=== PATIENT | male | born 1945 | race Caucasian/White ===

== ENCOUNTER 2016-11-26 11:31 | Inpatient (IN) | payer MEDICARE, OTHER ==
[~2016-11-26] VITALS: Ht 170.2 cm; Wt 67.6 kg
--- NOTE | 2016-11-26 11:33 | NUR ---
pt to er er bed 09 accompanied by family. presents w/ a scalp laceration approx 3cm w/ minimal bleeding noted. possible syncope. pt states was coughing and possible lost air and fell. unable to recall exaclty what happen. gowned and placed on monitor. stable vitals. minimal pain. awaiting md mclaughlin. Addendum: 11/26/16 at 1413 by CHANO 3cm hematoma w/ overlying superficial abrasion. no laceration noted.
--- NOTE | 2016-11-26 11:59 | NUR ---
dr mahan at bedside for eval.
[2016-11-26] MEDS ORDERED: IV SET PRIMARY 1 EA INFUS.SET MC ONE ×2 (12:13→13:29)
[2016-11-26] MEDS ORDERED: IV NS 0.9% 500 ML IV ONE ×2 (12:13→13:29)
--- NOTE | 2016-11-26 12:18 | NUR ---
iv line started blood drawn and sent to lab.
--- NOTE | 2016-11-26 12:22 | NUR ---
pt to radiology for head ct scan via wheelchair.
[2016-11-26] MEDS ORDERED: IV NS 0.9% 500 ML BAG IV ONE (12:30)
[2016-11-26 13:00] LABS: BASOPHILS % (AUTO) 0.1 % (0.0-2.0); EOSINOPHILS # (AUTO) 0.1 /CMM (0.0-0.7); EOSINOPHILS % (AUTO) 0.7 % (0.0-6.0); HEMATOCRIT 41 % (39-51); HEMOGLOBIN 13.7 g/dL (13.5-17.5); LYMPHOCYTES # (AUTO) 0.3 /CMM (0.8-4.8); LYMPHOCYTES % (AUTO) 2.6 % (20.0-44.0); MEAN CORPUSCULAR HEMOGLOBIN 30 PG (26.0-33.0); MEAN CORPUSCULAR HGB CONC 34 g/dl (31.0-36.0); MEAN CORPUSCULAR VOLUME 89 fL (80-96); MONOCYTES # (AUTO) 1.3 /CMM (0.1-1.30); MONOCYTES % (AUTO) 10.1 % (2.0-12.0); NEUTROPHILS % (AUTO) 86.5 % (43.0-81.0); PLATELET COUNT (AUTO) 309 /CMM (150-450); RDW COEFFICIENT OF VARIATION 10.9 (11.5-15.0); RED BLOOD CELL COUNT(AUTO) 4.61 MIL/uL (4.5-6.0); WHITE BLOOD COUNT (AUTO) 12.7 K/uL (4.3-11.0)
[2016-11-26 13:10] LABS: CALCIUM, SERUM 8.6 mg/dL (8.5-10.1); CARBON DIOXIDE 28 mmol/L (21-32); CREATININE 1.2 mg/dL (0.6-1.3); GLUCOSE 122 mg/dL (74-106); POTASSIUM 3.5 mmol/L (3.5-5.1); UREA NITROGEN, BLOOD 9 mg/dL (7-18)
[2016-11-26 13:11] LABS: PROTHROMBIN TIME 10.4 SECS (9.5-12.7)
[2016-11-26 13:12] LABS: CHLORIDE 80 mmol/L (98-107); SODIUM SERUM 116 mmol/L (136-145)
[2016-11-26 13:17] LABS: TROPONIN I < 0.017 ng/mL (0.00-0.056)
--- NOTE | 2016-11-26 13:18 | NUR ---
SPOKE TO NURSING TAX ADVISOR FOR TELE BED
--- NOTE | 2016-11-26 13:19 | NUR ---
CALLED [employer]. SONOGRAPHY TECHNOLOGIST DR KIRKLAND PAGED
[2016-11-26] MEDS ORDERED: BENZ200C45 PO (13:26)
[2016-11-26] MEDS ORDERED: LEVO112T2 PO (13:26)
[2016-11-26] MEDS ORDERED: TAMS0.4C34 PO (13:26)
[2016-11-26] MEDS ORDERED: METF500T4 PO (13:26)
[2016-11-26] MEDS ORDERED: AMLO5TAB2 PO (13:26)
--- NOTE | 2016-11-26 13:31 | NUR ---
PT ASSIGNED TELE BED 312-2
[2016-11-26 13:36] LABS: APPEARANCE,URINE Clear (CLEAR); BILIRUBIN,URINE SMALL (NEGATIVE); BLOOD, URINE Negative Ery/uL (NEGATIVE); COLOR,URINE Yellow (YELLOW); KETONES,URINE 40 (NEGATIVE); LEUKOCYTE ESTERASE ,URINE Negative (NEGATIVE); NITRITE, URINE Negative (NEGATIVE); PH,URINE 6.5 (5.0-8.0); PROTEIN,URINE Trace mg/dl (NEGATIVE); UGLUCOSE Negative (NEGATIVE); UROBILINOGEN,URINE 0.2 EU/dL (0.2)
[2016-11-26 13:40] LABS: BACTERIA,URINE None seen /HPF (None Seen); RBC,URINE NONE SEEN /HPF (0-2); SQUAMOUS EPITHELIAL CELL,UR Few /HPF (None Seen)
[2016-11-26] MEDS ORDERED: IV NS 0.9% 1,000 ML BAG IV ONE (14:00)
--- NOTE | 2016-11-26 14:07 | NUR ---
report given to wilma. pt awaitnig transfer to floor.
[2016-11-26 14:09] LABS: ADD URINE CULTURE NO; WBC,URINE NONE SEEN /HPF (0-3)
[2016-11-26 14:20] VITALS: BP 152/93
--- NOTE | 2016-11-26 14:20 | NUR ---
patient received from ER via gurney; alert & oriented x3; ambuatory with steady gait; contusion/abrasion to R posterior scalp, scant sanguineous drainage, cleansed with NS & 4x4 gauze applied; scab to RLE anderson, no bleeding noted; LAC 20g HL patent, skin wnl; denies any pain; at bedside; will continue to monitor.
[2016-11-26] MEDS ORDERED: BENZONATATE 100 MG CAPSULE PO PRN (15:29)
[2016-11-26] MEDS ORDERED: ACETAMINOPHEN 650 MG/SUPP.RECT RC PRN (15:30)
[2016-11-26] MEDS ORDERED: DEXTROSE 50%-WATER 50 ML DISP.SYRIN IV PRN (15:30)
[2016-11-26] MEDS ORDERED: ONDANSETRON HCL/PF 4 MG/2 ML VIAL IVP PRN (15:30)
[2016-11-26 16:00] VITALS: BP_SYST 120; BP_SYST 130; BP_SYST 164; BP_DIAS 78; BP_DIAS 84; BP_DIAS 94
[2016-11-26] MEDS ORDERED: IV SET PRIMARY PUMP SET 1 EA INFUS.SET MC ONE (16:13)
[2016-11-26] MEDS: IV NS 0.9% 1,000 ML IV PRN (16:19)
[2016-11-26] MEDS: BLOOD SUGAR DIAGNOSTIC 1 EACH STRIP VI SCH ×2 (17:10→21:27)
[2016-11-26] MEDS: INSULIN REGULAR, HUMAN 100 UNIT/ML 3 ML VIAL SQ PRN (17:11)
[2016-11-26] MEDS: methylPREDNISolone SOD SUCC 40 MG/ML VIAL IV SCH (17:25)
[2016-11-26] MEDS ORDERED: LEVOFLOXACIN 750 MG /D5W 150ML 750 MG in PREMIX 1 EA IV SCH (17:30)
--- NOTE | 2016-11-26 18:00 | NUR ---
patient tolerating diabetic diet; drsg to posterior scalp cdi; denies any pain at this time; will endorse to PM nurse.
[2016-11-26] MEDS ORDERED: SECONDARY IV SET 1 EA INFUS.SET MC ONE (18:01)
[2016-11-26] MEDS: LEVOFLOXACIN 750 MG /D5W 150ML 750 MG in PREMIX 1 EA IV SCH (18:06)
[2016-11-26] MEDS ORDERED: PNEUMOCOCCAL 23-VAL P-SAC VAC 0.5 ML VIAL SQ ONE (19:00)
--- NOTE | 2016-11-26 19:30 | NUR ---
MS RN NOTE PATIENT RECEIVED AWAKE AND ALERT IN BED. DENIES ANY PAIN OR DISCOMFORT AT THIS TIME. IV SITE INTACT, WITH FLUIDS RUNNING ORDERED. NO SOB NOTED. BED LOCKED AND IN LOWEST POSITION. SIDE RAILS UP, CALL LIGHT WITHIN REACH. WILL CONTINUE TO MONITOR.
[2016-11-26] MEDS: ALBUTEROL FS 2.5 MG/0.5 ML VIAL.NEB NEB SCH (19:52)
[2016-11-26] MEDS: IPRATROPIUM NEB FS 0.5 MG/2.5 ML AMPUL.NEB NEB SCH (19:52)
[2016-11-26 20:00] VITALS: BP_SYST 162; BP_SYST 167; BP_DIAS 93; BP_DIAS 97
[2016-11-26] MEDS: *INSULIN REGULAR(HUMULIN R)HUM 100 UNIT/ML VIAL SQ PRN (21:25)
[2016-11-26] MEDS: TAMSULOSIN 0.4 MG CAP.SR.24H PO SCH (21:26)
--- NOTE | 2016-11-26 22:00 | NUR ---
SPECIAL EDUCATION EDUCATIONAL ASSISTANT NOTE PATIENT STABLE. DRESSING TO POSTERIOR SCALP CDI. EDUCATED PATIENT ON PNEUMOVAC VACCINE REQUESTED. ADMINISTERED PNEUMOVAC TO LEFT DELTOID REQUESTED BY PATIENT. PATIENT TOLERATED WELL. WILL CONTINUE TO MONITOR.
[2016-11-26 22:10] LABS: ABG OXYGEN SATURATION 95.2 % (92.0-98.5); ABG PCO2 29.8 mmHg (35.0-45.0); ABG PH 7.443 (7.350-7.450); ABG PO2 79.4 mmHg (75.0-100.0); AaDO2 41.8 mmHg; COHb 0.9 % (0.5-1.5); MetHb 0.6 % (0.0-1.5); O2Hb 93.8 % (94.0-97.0); SITE, ABG Right Brachial; VENT MODE, BG room air
[2016-11-27] VITALS: BP 143/91
[2016-11-27] MEDS: ALBUTEROL FS 2.5 MG/0.5 ML VIAL.NEB NEB SCH ×4 (01:09→20:08)
[2016-11-27] MEDS: IPRATROPIUM NEB FS 0.5 MG/2.5 ML AMPUL.NEB NEB SCH ×4 (01:10→20:08)
[2016-11-27 04:00] VITALS: BP 134/82
--- NOTE | 2016-11-27 06:06 | NUR ---
LIFE MANAGER NOTE TELE SR 74. PATIENT STABLE. BLOOD SUGAR 157. INSULIN COVERAGE GIVEN PER SLIDING SCALE. ALL NEEDS MET AND ATTENDED TO. IV SITE PATENT, WITH NO REDNESS OR INFILTRATION NOTED. WILL ENDORSE TO DAY SHIFT FOR MISHA.
[2016-11-27] MEDS: IV NS 0.9% 1,000 ML IV PRN (06:24)
[2016-11-27] MEDS: INSULIN REGULAR, HUMAN 100 UNIT/ML 3 ML VIAL SQ PRN ×3 (06:25→17:29)
[2016-11-27] MEDS: BLOOD SUGAR DIAGNOSTIC 1 EACH STRIP VI SCH ×4 (06:32→21:32)
[2016-11-27] MEDS: LEVOTHYROXINE SODIUM 112 MCG TABLET PO SCH (06:32)
[2016-11-27 07:07] LABS: HEMATOCRIT 38 % (39-51); HEMOGLOBIN 12.8 g/dL (13.5-17.5); LYMPHOCYTES # (AUTO) 0.2 /CMM (0.8-4.8); LYMPHOCYTES % (AUTO) 1.6 % (20.0-44.0); MEAN CORPUSCULAR HEMOGLOBIN 29 PG (26.0-33.0); MEAN CORPUSCULAR HGB CONC 34 g/dl (31.0-36.0); MEAN CORPUSCULAR VOLUME 87 fL (80-96); MONOCYTES # (AUTO) 0.6 /CMM (0.1-1.30); MONOCYTES % (AUTO) 5.7 % (2.0-12.0); NEUTROPHILS # (AUTO) 9.4 /CMM (1.8-8.9); NEUTROPHILS % (AUTO) 92.7 % (43.0-81.0); PLATELET COUNT (AUTO) 320 /CMM (150-450); RED BLOOD CELL COUNT(AUTO) 4.34 MIL/uL (4.5-6.0); WHITE BLOOD COUNT (AUTO) 10.1 K/uL (4.3-11.0)
--- NOTE | 2016-11-27 07:20 | NUR ---
MACHINE MAINTENANCE SUPERVISOR NOTES RECEIVED PATIENT AWAKE IN BED IN NO ACUTE SIGNS OF DISTRESS. ALERT AND ORIENTED X 3, NO C/O PAIN OR DISCOMFORTS AT THIS TIME. ON ROOM AIR, BREATHING WELL AND UNLABORED. ON TELE-MONITORING WITH CURRENT READING OF SR AND HR OF 74, DENIES ANY CHEST PAIN. IV ACCESS ON LEFT AC INTACT AND PATENT WITH IVF OF NS AT 75ML/HR IN FUSING WELL, NO S/S OF INFILTRATION NOTED. CALL LIGHT WITHIN REACH, BED IN LOW POSITION AND BREAKS ARE LOCKED FOR SAFETY MEASURES. WILL CONTINUE TO MONITOR ACCORDINGLY.
[2016-11-27 07:32] LABS: POTASSIUM 3.8 mmol/L (3.5-5.1)
[2016-11-27 07:33] LABS: CREATININE 1.1 mg/dL (0.6-1.3); PHOSPHORUS 3.6 mg/dL (2.5-4.9)
[2016-11-27 08:00] VITALS: BP 155/88
--- NOTE | 2016-11-27 08:14 | NUR ---
RN NOTES RECEIVED CALL FROM LAB THAT PT'S MG LEVEL IS 1.0, SPOKE TO SOFTWARE TEST MANAGER Jean PARIKH WHO WAS ON THE UNIT, ORDERED MG 1GM/100ML D5W X 6 BAGS (TOTAL 6GMS) IV. WILL CONTINUE TO MONITOR.
[2016-11-27] MEDS: PANTOPRAZOLE 40 MG TABLET.DR PO SCH (08:23)
[2016-11-27] MEDS: methylPREDNISolone SOD SUCC 40 MG/ML VIAL IV SCH (08:23)
[2016-11-27] MEDS ORDERED: SECONDARY IV SET 1 EA INFUS.SET MC ONE (08:26)
[2016-11-27] MEDS: Magnesium 1GM/D5W 100ML PREMIX 100 ML IV SCH ×6 (08:30→15:09)
[2016-11-27] MEDS: METFORMIN 500 MG TABLET PO SCH (08:31)
--- NOTE | 2016-11-27 09:36 | NUR ---
RN NOTES PATIENT NOTED WITH DRY COUGH ON AND OFF, PRN BENZONATATE 200MG CAP GIVEN. WILL CONTINUE TO MONITOR
[2016-11-27 12:00] VITALS: BP 142/80
[2016-11-27] MEDS: FOLIC ACID 1 MG TABLET PO SCH (12:51)
[2016-11-27] MEDS: THIAMINE HCL 100 MG TABLET PO SCH (12:51)
[2016-11-27] MEDS: MULTIVITAMINS,THERAPEUTIC 1 UDTAB TABLET PO SCH (12:51)
[2016-11-27 16:00] VITALS: BP 146/82
[2016-11-27 16:23] LABS: URINE SODIUM, RANDOM 64 mmol/l (40-220)
[2016-11-27] MEDS: LEVOFLOXACIN 750 MG /D5W 150ML 750 MG in PREMIX 1 EA IV SCH (17:28)
[2016-11-27 18:09] LABS: OSMOLALITY,URINE 348 mOS/kg (340-1090)
--- NOTE | 2016-11-27 18:47 | NUR ---
BLEACHER LARD CLOSING NOTES PATIENT SITTING IN CHAIR BY BEDSIDE. ALERT AND ORIENTED X 4. ALL NEEDS AND CARE WELL ATTENDED. VISITED BY THIS AFTERNOON. MAINTAINED ON ROOM AIR, NO SOB NOTED. ALL DUE MEDS GIVEN ORDERED AND TOLERATED. CONTINUES ON TELE-MONITORING WITH CURRENT READING OF SR AND HR OF 86, NO C/O CHEST PAIN DURING SHIFT. IV ACCESS ON LEFT AC INTACT AND PATENT, IVF OF NS @ 75ML/HR INFUSING WELL, NO S/S OF INFILTRATION NOTED. CALL LIGHT WITHIN REACH, BED IN LOW POSITION AND BREAKS LOCKED FOR SAFETY MEASURES. WILL ENDORSED TO POUNCER NURSE FOR MISHA.
[2016-11-27 20:00] VITALS: BP 146/89
--- NOTE | 2016-11-27 20:00 | NUR ---
RN NOTES PX RECEIVED AWAKE, ALERT, ORIENTED X 3, ON ROOM AIR, MOVES INDEPENDENTLY IN BED; AMBULATORY; PIV FLUSHED INTACT PATENT; SR ON MONITOR; DENIED CHEST PAIN, OTHER PAIN COMPLAINTS, N/V, DIZZINESS; DISCUSSED PLAN OF CARE; CALL LIGHT WITHIN REACH.
--- NOTE | 2016-11-27 20:00 | NUR ---
RN NOTES RECEIVED PX AWAKE, ALERT, ORIENTED X 3, ON ROOM AIR; MOVES INDEPENDENTLY IN BED; WITH LACERATION ON BACK OF HEAD, NO BLEEDING, NO TENDERNESS; PIV FLUSHED PATENT INTACT; AMBULATES AND SITS ON CHAIR WITH STABLE GAIT; DENIED PAIN, SOB, N/V, DIZZINESS; DISCUSSED PLAN OF CARE; CALL LIGHT WITHIN REACH.
[2016-11-27] MEDS: TAMSULOSIN 0.4 MG CAP.SR.24H PO SCH (21:32)
[2016-11-27] MEDS: *INSULIN REGULAR(HUMULIN R)HUM 100 UNIT/ML VIAL SQ PRN (21:33)
[2016-11-28] VITALS: BP 135/79
[2016-11-28] MEDS: ALBUTEROL FS 2.5 MG/0.5 ML VIAL.NEB NEB SCH ×3 (01:55→13:15)
[2016-11-28] MEDS: IPRATROPIUM NEB FS 0.5 MG/2.5 ML AMPUL.NEB NEB SCH ×3 (01:55→13:15)
[2016-11-28 04:00] VITALS: BP 153/94
--- NOTE | 2016-11-28 06:22 | NUR ---
RN NOTES CONDITION AND NEURO STATUS UNCHANGED; NO ACUTE EVENTS OVERNIGHT; PX DENIED PAIN, SOB, N/V; OFFERED EARLY AM CARE BUT REFUSED; FLUSHED PIV PATENT INTACT; WILL ENDORSE TO NEXT RN. INSTRUCTED ON HOW TO GET A URINE SPECIMEN; WILL ENDORSE TO NEXT RN.
[2016-11-28 07:04] VITALS: BP 133/70
--- NOTE | 2016-11-28 07:10 | NUR ---
RN INITIAL NOTE REPORT RECEIVED FROM ISREAL RUVALCABA. PT A/OX4 . TELE SR. IV LAC #20G INTACT PATENT AND FLUSHED. PAIN 0/10. NO C/O ACUTE SOB. PT AWAKE AND COMFORTABLE IN BED. ALL SAFETY MEASURES IN PLACE. WILL CONTINUE TO MONITOR.
[2016-11-28 07:19] LABS: BASOPHILS % (AUTO) 0.1 % (0.0-2.0); EOSINOPHILS # (AUTO) 0.1 /CMM (0.0-0.7); EOSINOPHILS % (AUTO) 0.5 % (0.0-6.0); HEMATOCRIT 37 % (39-51); HEMOGLOBIN 12.5 g/dL (13.5-17.5); LYMPHOCYTES # (AUTO) 0.4 /CMM (0.8-4.8); LYMPHOCYTES % (AUTO) 2.9 % (20.0-44.0); MEAN CORPUSCULAR HEMOGLOBIN 30 PG (26.0-33.0); MEAN CORPUSCULAR HGB CONC 34 g/dl (31.0-36.0); MEAN CORPUSCULAR VOLUME 88 fL (80-96); MONOCYTES # (AUTO) 1.8 /CMM (0.1-1.30); MONOCYTES % (AUTO) 12.3 % (2.0-12.0); NEUTROPHILS # (AUTO) 12.3 /CMM (1.8-8.9); NEUTROPHILS % (AUTO) 84.2 % (43.0-81.0); PLATELET COUNT (AUTO) 342 /CMM (150-450); RED BLOOD CELL COUNT(AUTO) 4.23 MIL/uL (4.5-6.0); WHITE BLOOD COUNT (AUTO) 14.6 K/uL (4.3-11.0)
[2016-11-28 07:33] LABS: CALCIUM, SERUM 8.1 mg/dL (8.5-10.1); MAGNESIUM 1.9 mg/dL (1.8-2.4); POTASSIUM 3.9 mmol/L (3.5-5.1)
[2016-11-28 07:47] LABS: THYROID STIMULATING HORMONE 3.366 uIU/mL (0.358-3.74); URIC ACID 4.7 mg/dL (2.6-7.2)
[2016-11-28 08:00] VITALS: BP 133/70
[2016-11-28] MEDS: LEVOTHYROXINE SODIUM 112 MCG TABLET PO SCH (08:14)
[2016-11-28] MEDS: MULTIVITAMINS,THERAPEUTIC 1 UDTAB TABLET PO SCH (08:14)
[2016-11-28] MEDS: METFORMIN 500 MG TABLET PO SCH (08:14)
[2016-11-28] MEDS: PANTOPRAZOLE 40 MG TABLET.DR PO SCH (08:14)
[2016-11-28] MEDS: FOLIC ACID 1 MG TABLET PO SCH (08:14)
[2016-11-28] MEDS: THIAMINE HCL 100 MG TABLET PO SCH (08:14)
[2016-11-28] MEDS: BLOOD SUGAR DIAGNOSTIC 1 EACH STRIP VI SCH ×2 (08:15→11:57)
[2016-11-28] MEDS: *INSULIN REGULAR(HUMULIN R)HUM 100 UNIT/ML VIAL SQ PRN (08:21)
--- NOTE | 2016-11-28 11:04 | NUR ---
WOUND CARE: PT PRESENTS WITH BUMP TO BACK OF HEAD, NO DRAINAGE. PT INDEPENDENT WITH BED MOBILITY AND CONTINENT. WILL SEE PRNSurinder CLARK IN AGREEMENT WITH PLAN OF CARE.
[2016-11-28 11:08] LABS: URINE SODIUM, RANDOM 32 mmol/l (40-220)
[2016-11-28 11:44] LABS: OSMOLALITY,URINE 184 mOS/kg (340-1090)
[2016-11-28 12:00] VITALS: BP 133/70
[2016-11-28] MEDS ORDERED: LEVO750T46 PO (12:24)
--- NOTE | 2016-11-28 14:55 | NUR ---
SCRAP DROP OPERATOR NOTE PT DC VIA TAXI REMOVED ID BAND AND IV. PT STABLE. ALL DC INSTRUCTIONS GIVEN TO PT. PHOTOS TAKEN AND PLACED IN CHART BELONGING LIST SIGNED. PT CLEAN AND DRY. RX GIVEN TO PT. ALL ORDERS CARRIED OUT. PT TAKEN BY SALMA GUZMAN TO TAXI.
== END 2016-11-28 15:30 | disposition home or self-care (01) | DRG 312 ==
LOC: ER 11:38 → TELE 13:37 → MED 11-28 10:42
PROVIDERS: ADMIT Internal Medicine; ATTEND Internal Medicine
DX: R55 Syncope and collapse (principal); E22.2 Syndrome of inappropriate secretion of antidiuretic hormone; R56.9 Unspecified convulsions; I95.1 Orthostatic hypotension; E03.9 Hypothyroidism, unspecified; E11.9 Type 2 diabetes mellitus without complications; I10 Essential (primary) hypertension; J40 Bronchitis, not specified as acute or chronic; N40.0 Benign prostatic hyperplasia without lower urinary tract symptoms; J32.0 Chronic maxillary sinusitis; E78.5 Hyperlipidemia, unspecified; S01.01XA Laceration without foreign body of scalp, initial encounter; W18.30XA Fall on same level, unspecified, initial encounter; Y92.009 Unspecified place in unspecified non-institutional (private) residence as the place of occurrence of the external cause; Z87.891 Personal history of nicotine dependence; E83.42 Hypomagnesemia; I67.2 Cerebral atherosclerosis; J20.9 Acute bronchitis, unspecified; Z79.84 Long term (current) use of oral hypoglycemic drugs
CPT/HCPCS: 36415; 36600; 70450-TC; 71010-TC; 80048-TC; 81000-TC; 82962-TC; 83735-TC; 83935-TC; 84100-TC; 84300-TC; 84443-TC; 84484-TC; 84550-TC; 85025-TC; 85730-TC; 87081-TC; 90732; 93307-TC; 94799-TC; 97001-TC; 97116-TC; 97530-TC; A4216; A4606; A6402; A6403; J1815; J1956; J2920; J3475; J7030; J7040; Z7610